=== PATIENT | female | born 1965 | race Caucasian/White ===

== ENCOUNTER 2016-05-17 17:56 | Emergency (ER) | payer SELFPAY ==
[2016-05-17] MEDS ORDERED: CITALOPRAM HYDROBROMIDE 20 MG TABLET PO ONE (18:10)
[2016-05-17] MEDS ORDERED: HYDROXYZINE PAMOATE 50 MG CAPSULE PO ONE (18:10)
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
[2016-05-17 20:14] VITALS: BP 97/63
== END 2016-05-17 20:14 | disposition home or self-care (01) ==
LOC: ER 17:56
DX: Z04.1 Encounter for examination and observation following transport accident (principal); T40.1X4A Poisoning by heroin, undetermined, initial encounter; V49.9XXA Car occupant (driver) (passenger) injured in unspecified traffic accident, initial encounter; F41.9 Anxiety disorder, unspecified; F17.200 Nicotine dependence, unspecified, uncomplicated
CPT/HCPCS: 99284